=== PATIENT | female | born 1990 | race Caucasian/White ===

== ENCOUNTER → 2019-04-30 | Outpatient (CLI) | payer MEDICAID ==
[2019-04-30 11:47] LABS: HCT 40.7 % (34.0-46.0); HGB 13.6 gm/dL (11.4-16.0); MCH 30.7 pg (25.0-35.0); MCHC 33.4 g/dL (31.0-37.0); MCV 91.8 fL (80.0-100.0); Mean Platelet Volume 7.1; Platelet Count 307 k/uL (150-450); RBC 4.43 m/uL (3.80-5.40); RDW 12.1 % (11.5-15.5); WBC 10.8 k/uL (3.8-10.6)
[2019-04-30 16:34] LABS: DHEA Sulfate 200.9 ug/dL (26.0-430.0)
[2019-04-30 16:35] LABS: Follicle Stimulating Hormone 6.4 mIU/mL
[2019-04-30 16:58] LABS: Progesterone <0.2 ng/mL
[2019-04-30 17:13] LABS: T4, Free (Free Thyroxine) 1.3 ng/dL (0.80-1.80)
[2019-04-30 17:42] LABS: African American GFR (CKD) 117.1 (60.0-200.0); Albumin 4.5 g/dL (3.80-4.90); Albumin/Globulin Ratio 2.25 (1.60-3.17); Anion Gap 11.1 mmol/L (4.00-12.00); BUN/Creat Ratio 16.25 Ratio (12.00-20.00); Calcium 9.1 mg/dL (8.7-10.3); Carbon Dioxide 25.9 mmol/L (21.6-31.8); Potassium 4.3 mmol/L (3.5-5.5); Total Bilirubin 0.3 mg/dL (0.2-1.2); Total Protein 6.5 g/dL (6.2-8.2)
[2019-04-30 19:09] LABS: Hemoglobin A1C 5.3 % (4.0-6.0)
== END | disposition home or self-care (01) ==
LOC: LABWHC1 10:48
PROVIDERS: ATTEND Obstetrics & Gynecology Obstetrics
DX: N92.6 Irregular menstruation, unspecified (principal)
CPT/HCPCS: 36415; 80053; 82627; 83001; 83002; 83036; 84144; 84146; 84403; 84439; 84443; 85027

== ENCOUNTER → 2020-10-04 | Outpatient (CLI) | payer MEDICAID ==
[2020-10-04 14:46] LABS: HCT 35.4 % (37.2-46.3); HGB 11.3 g/dL (12.0-15.0); MCH 29.9 pg (27.0-32.0); MCHC 31.9 g/dL (32.0-37.0); MCV 93.7 fL (80.0-97.0); Mean Platelet Volume 11.4 fL (9.5-12.2); Platelet Count 245 X 10*3/uL (140-440); RBC 3.78 X 10*6/uL (4.10-5.20); RDW 13.4 % (11.5-14.5); WBC 12.04 X 10*3/uL (4.50-10.00)
== END | disposition home or self-care (01) ==
LOC: LABWHC1 07:47
PROVIDERS: ATTEND Obstetrics & Gynecology Obstetrics
DX: Z36.9 Encounter for antenatal screening, unspecified (principal); Z3A.00 Weeks of gestation of pregnancy not specified
CPT/HCPCS: 36415; 82950; 85027

== ENCOUNTER 2020-12-20 22:31 | Outpatient (CLI) | payer MEDICAID ==
[2020-12-21 00:15] VITALS: BP 137/86; PULSE 129; RESP 18; TEMP 97.3
--- NOTE | 2021-01-13 16:29 | P.MSEPDOC ---
Presenting Problems - Arrival Data Date of Arrival on Unit: 12/21/20 Time of Arrival on Unit: 22:31 Mode of Transport: Ambulatory - Complaint OB-Reason for Admission/Chief Complaint: Possible Onset of Labor, Decreased Movement Comment: [facility] decrease movement and contractions throughout that day rating pain 2/10, patient states she hasnt felt baby move since 1600 or 1700 today. Medical History - Information : 1 Para: 0 Term: 0 : 0 Abortions: Spontaneous or Elective: 0 Number of Living Children: 0 - Gestational Age Gestational Age by KITA (wks/days): 38 Weeks and 5 Days Review of Systems - Review of Systems Constitutional: No problems Breast: No problems ENT: No problems Cardiovascular: No problems Respiratory: No problems Gastrointestinal: No problems Genitourinary: No problems Musculoskeletal: No problems Neurological: No problems Skin: No problems Vital Signs - Temperature Temperature: 97.3 F Temperature Source: Temporal Artery Scan - Pulse Pulse Oximetery Pulse Rate: 129 Pulse Assessment Method: Pulse Oximetry - Respirations Respiratory Rate: 18 Oxygen Delivery Method: Room Air O2 Sat by Pulse Oximetry: 99 - Blood Pressure Right Arm Blood Pressure: 137/86 Blood Pressure Mean: 103 Blood Pressure Source: Automatic Cuff Medical Screen Scoring - Assessment - Baby A Baseline FHR: 135 Physician Notification - Physician Notified Physician Notified Date: 12/21/20 Physician Notified Time: 22:56 Physician: Jillian Pillai New Order Received: Yes (check cervix and if no change in 1 hour Discharge home) - Notification Comment Comment: cervix 1, thick and high, no change, Discharge patient home Disposition - Disposition OB Disposition: Discharge to home Discharge Date: 12/21/20 Discharge Time: 00:05 I agree with the RN Medical Screening Exam: Yes Case reviewed; plan agreed upon as documented in EMR&OBIX.: Yes Diagnosis: DECREASED MOVEMENTS, THIRD TRIMESTER, FETUS 1
== END 2020-12-21 00:05 | disposition home or self-care (01) ==
LOC: FBPOP 22:31
PROVIDERS: ATTEND Obstetrics & Gynecology Obstetrics
DX: O36.8130 Decreased fetal movements, third trimester, not applicable or unspecified (principal); Z3A.38 38 weeks gestation of pregnancy
CPT/HCPCS: 59025; 99213

== ENCOUNTER 2020-12-29 15:52 | Inpatient (IN) | payer MEDICAID ==
[2020-12-29] MEDS ORDERED: DINOPROSTONE 10 MG INSERT.ER VAGINAL ONE (16:30)
[2020-12-29] MEDS ORDERED: BUTORPHANOL 1 MG/ML 1 ML VIAL IV PRN (16:45)
--- NOTE | 2020-12-29 16:56 | P.HPOB ---
History of Present Illness H&P Date: 12/29/20 Chief Complaint: IUP @ 39 6/7 weeks This is a 30-year-old 1 para 0 at 39-6/7 weeks that presents to labor and delivery for induction of labor. Patient has been receiving routine care which has been essentially uncomplicated. Patient notes good movement denies vaginal bleeding or loss of fluid. She did have COVID 19 in march 2020. US done Sunday in the office, 9 lbs-0 oz. Normal judit. vertex presentation On blood work the patient has a blood type of A pos, rubella immune, RPR NR, hepatitis B surface antigen negative, HIV negative she did pass her one- hour Glucola with a level of 100, group beta strep cultures were negative. Review of Systems Constitutional: Denies fatigue, Denies fever Ears, nose, mouth and throat: Denies headache Cardiovascular: Reports leg edema Respiratory: Denies dyspnea Gastrointestinal: Denies constipation, Denies diarrhea, Denies nausea, Denies vomiting Genitourinary: Reports Past Medical History History of Any Multi-Drug Resistant Organisms: None Reported Smoking Status: Never smoker Medications and Allergies Home Medications Medication Instructions Recorded Confirmed Type Evening [place] Oil 1 tab VAGINAL DAILY 12/20/20 12/29/20 History Pnv,Calcium 72/Iron/Folic Acid 1 tab PO DAILY 12/20/20 12/29/20 History [ Plus Tablet] Allergies Allergy/AdvReac Type Severity Reaction Status Date / Time No Known Allergies Allergy Verified 12/29/20 16:09 Exam Osteopathic Statement: *. No significant issues noted on an osteopathic structural exam other than those noted in the History and Physical/Consult. Intake and Output 12/29/20 12/29/20 12/29/20 06:59 14:59 22:59 Other: Weight 141.067 kg Targeted physical exam is performed and the state in general this a well- nourished well-developed female in no acute distress, breathing is noted to be nonlabored, heart has regular rate and rhythm, abdomen is gravid and appropriate for gestational age, on cervical exam she is 1/50/-3 station, heart tones are noted to be category 1 and she is harpreet irregularly. Assessment and Plan (1) Term Current Visit: Yes Status: Acute Code(s): Z34.90 - ENCNTR FOR SUPRVSN OF NORMAL , UNSP, UNSP TRIMESTER SNOMED Code(s): 27081547 Plan: 30-year-old 1 para 0 at 39-6/7 weeks presents for induction of labor with Cervidil. Suspected LGA with ultrasound done this week in the office revealing a 9 pound . Options for analgesia during labor discussed putting Stadol and epidural. Will plan Cervidil to be removed around 5 AM, Pitocin to start soon afterwards. Patient states understanding of the plan of care all questions are answered.
[2020-12-29 17:10] LABS: Basophils % (A) 0 %; Eosinophils # (A) 0.2 k/uL (0-0.7); Eosinophils % (A) 1 %; HCT 37.2 % (34.0-46.0); Lymphocytes # (A) 1.8 k/uL (1.0-4.8); Lymphocytes % (A) 14 %; MCH 30.5 pg (25.0-35.0); MCV 87.1 fL (80.0-100.0); Mean Platelet Volume 8.7; Monocytes # (A) 0.4 k/uL (0-1.0); Monocytes % (A) 3 %; Neutrophils # (A) 10.3 k/uL (1.3-7.7); Neutrophils % (A) 81 %; Platelet Count 242 k/uL (150-450); RBC 4.27 m/uL (3.80-5.40); RDW 13.8 % (11.5-15.5); WBC 12.7 k/uL (3.8-10.6)
[2020-12-30] MEDS ORDERED: CARBOPROST TROMETHAMINE 250 MCG/ML 1 ML AMP IM PRN (05:56)
[2020-12-30] MEDS ORDERED: METHYLERGONOVINE 0.2 MG/ML 1 ML AMP IM PRN (05:56)
[2020-12-30] MEDS ORDERED: LIDOCAINE 0.5% (PF) 5 MG/ML (50 ML SDV) SQ PRN (05:56)
[2020-12-30] MEDS ORDERED: OXYTOCIN 10 UNIT/ML 1 ML VIAL IM PRN (05:56)
[2020-12-30] MEDS ORDERED: TERBUTALINE 1 MG/ML VIAL SQ PRN (05:56)
[2020-12-30] MEDS ORDERED: LACTATED RINGERS 1,000 ML IV SCH (06:00)
[2020-12-30] MEDS ORDERED: OXYTOCIN 30 UNITS/500 ML NS 30 UNIT in SALINE 1 500ML.BAG IV SCH ×2 (06:00→19:45)
[2020-12-30] MEDS: LACTATED RINGERS 1,000 ML IV SCH ×3 (06:01→15:32)
[2020-12-30] MEDS ORDERED: SODIUM CHLORIDE 0.9% 100 ML BAG ONE (15:13)
[2020-12-30] MEDS ORDERED: fentaNYL (PF) 50 MCG/ML 5 ML AMP ONE (15:13)
[2020-12-30] MEDS ORDERED: ROPIVACAINE 5MG/ML 20ML VIAL ONE (15:13)
[2020-12-30] MEDS ORDERED: CITRIC ACID-SODIUM CITRATE 15 ML CUP PO ONE (17:12)
[2020-12-30] MEDS ORDERED: ceFAZolin 3 GM in SODIUM CHLORIDE 0.9% 100 ML IVPB ONE (17:12)
[2020-12-30] MEDS ORDERED: NALBUPHINE 10 MG/ML (1 ML AMP) ONE (18:45)
[2020-12-30] MEDS ORDERED: LIDOCAINE 2% SYG (PF) 100 MG/5 ML ONE (18:45)
[2020-12-30] MEDS ORDERED: MORPHINE SULFATE (PF) 0.3 MG/0.3 ML SYR ONE (18:45)
[2020-12-30] MEDS ORDERED: ONDANSETRON 4 MG/2 ML VIAL ONE (18:45)
[2020-12-30] MEDS ORDERED: fentaNYL (PF) 50 MCG/ML 2 ML AMP ONE (18:45)
[2020-12-30] MEDS ORDERED: OXYTOCIN 10 UNIT/ML 1 ML VIAL ONE (18:45)
[2020-12-30] MEDS ORDERED: METOCLOPRAMIDE 5 MG/ML 2 ML VIAL IVP PRN (19:33)
[2020-12-30] MEDS ORDERED: ONDANSETRON 4 MG/2 ML VIAL IVP PRN (19:33)
[2020-12-30] MEDS ORDERED: SIMETHICONE 80 MG CHEWABLE PO PRN (19:33)
[2020-12-30] MEDS ORDERED: diphenhydrAMINE 50 MG CAP PO PRN (19:33)
[2020-12-30] MEDS ORDERED: OXYTOCIN 10 UNIT/ML 1 ML VIAL IM ONE (19:33)
[2020-12-30] MEDS ORDERED: ZOLPIDEM 5 MG TAB PO PRN (19:33)
[2020-12-30] MEDS ORDERED: NALOXONE 0.4 MG/ML 1 ML VIAL IV PRN (19:33)
[2020-12-30] MEDS ORDERED: diphenhydrAMINE 50 MG/ML 1 ML VIAL IVP PRN ×2 (19:33)
[2020-12-30] MEDS ORDERED: diphenhydrAMINE 25 MG CAP PO PRN (19:33)
--- NOTE | 2020-12-30 19:33 | P.OP ---
Date of Procedure: 12/30/20 Preoperative Diagnosis: IUP at 40-0/7 weeks, arrest of descent/dilation, suspected LGA Postoperative Diagnosis: Same Procedure(s) Performed: Primary low transverse section Anesthesia: epidural Surgeon: Jillian Pillai Director Of Women'S Services #1: Osvaldo Morrow Estimated Blood Loss (ml): 398 IV fluids (ml): 800 Urine output (ml): 500 Pathology: none sent Condition: stable Disposition: observation Indications for Procedure: This 30-year-old 1 para 0 at 40-0/7 weeks presented to labor and delivery last night for planned cervical ripening with Cervidil. Patient had known suspected LGA baby. Ultrasound completed in the office this week revealed a 9 lbs. 0 oz. . Patient was admitted and made no private branch exchange installer the night with Cervidil. Patient did undergo amniotomy after Pitocin augmentation of labor. Clear fluid was obtained. Patient made minimal change throughout the day and at approximately 1730 patient was noted to be 3 cm with a 50% effaced cervix and the infant at a high station. Patient was counseled on the findings of this exam and discussed primary secondary to arrest arrest of descent and dilation. Patient wished to proceed with primary . Patient was taken back to the operating suite for section Operative Findings: Normal uterus tubes and ovaries were appreciated, infant was not within the pelvis, caput was appreciated. Viable male infant delivered at 1859, weight of 9 lbs. 0 oz. Description of Procedure: Patient was taken back to the operating suite where epidural anesthesia was fou nd be adequate. She was prepped and draped in normal sterile fashion in the dorsal supine position a Pfannenstiel skin incision was made with the scalpel and carried through the underlying layer of fascia. The fascia was then incised in the midline and extended laterally. The superior aspect the fascial incision was then grasped shanice clamps, elevated and underlying rectus muscle was dissected off sharply. Attention turned to the inferior aspect of the fascial incision which was grasped shanice clamps, elevated and underlying rectus muscles dissected off sharply. The rectus muscles were in the midline the peritoneum was identified and entered. The bladder blade was then inserted into the pelvis. The vesicouterine peritoneum was identified and a bladder flap was created using sharp and blunt dissection. The bladder blade was then reinserted into the pelvis. Hysterotomy incision was made with the scalpel the was encountered in a vertex presentation and delivered in the usual fashion. The umbilical cord was doubly clamped and cut and infant was handed off to awaiting RN. The placenta was delivered manually intact with a three-vessel cord being noted. The uterus was delivered from the abdomen. The uterus was cleared of all clots and debris. The hysterotomy incision was closed with 0 Vicryl in a running locked fashion. A second indicating suture was performed. Bleeding was noted toward the midportion of the hysterotomy incision therefore a [id number] suture was used to obtain hemostasis. The pelvis was then copiously irrigated. The hysterotomy incision was inspected found to be hemostatic. The uterus was returned to the abdomen. The gutters were cleared of all clots and debris. The rectus muscles was inspected and found to be hemostatic. The fascia was closed with 0 Vicryl in a running fashion from one lateral edge the midline and the other lateral edge the midline. The subcutaneous tissue was irrigated found to be hemostatic and closed with 3-0 Vicryl in a running fashion. The skin was then closed with 4-0 Vicryl in a subcuticular fashion. Steri-Strips and sterile dressings were applied. All counts were noted to be correct 2 at the end of the procedure. Patient did tolerate procedure well and was taken back to her labor and delivery suite.
[2020-12-31] MEDS: SENNOSIDES-DOCUSATE SODIUM 1 EACH TAB PO SCH ×3 (00:05→19:44)
[2020-12-31] MEDS: ACETAMINOPHEN IV (For NPO) 1,000 MG in EMPTY BAG 1 BAG IVPB SCH ×2 (00:05→01:05)
[2020-12-31] MEDS: ACETAMINOPHEN TAB 500 MG TAB PO SCH ×5 (00:06→23:38)
[2020-12-31] MEDS: LACTATED RINGERS 1,000 ML IV SCH ×2 (01:06→04:53)
[2020-12-31] MEDS: IBUPROFEN IV 800 MG in SODIUM CHLORIDE 0.9% 250 ML IV SCH ×3 (03:52→09:50)
[2020-12-31] MEDS: IBUPROFEN 600 MG TAB PO SCH ×3 (04:53→19:44)
--- NOTE | 2020-12-31 06:20 | P.PN ---
Progress Note - Text 12/31/20 601am 80-year-old female status post . She had an epidural and received Duramorph after the procedure, she was seen and evaluated this morning, patient has a VAS of 0 at rest. No complains of nausea vomiting. Patient does have complains of pruritus should subside by the end of the day
[2020-12-31 07:14] LABS: Basophils % (A) 0 %; Eosinophils # (A) 0.1 k/uL (0-0.7); Eosinophils % (A) 1 %; HCT 32.8 % (34.0-46.0); HGB 11.4 gm/dL (11.4-16.0); Lymphocytes # (A) 1.8 k/uL (1.0-4.8); Lymphocytes % (A) 16 %; MCH 30.9 pg (25.0-35.0); MCHC 34.7 g/dL (31.0-37.0); MCV 88.9 fL (80.0-100.0); Mean Platelet Volume 8.6; Monocytes # (A) 0.4 k/uL (0-1.0); Monocytes % (A) 4 %; Neutrophils # (A) 8.7 k/uL (1.3-7.7); Neutrophils % (A) 79 %; Platelet Count 193 k/uL (150-450); RBC 3.68 m/uL (3.80-5.40)
--- NOTE | 2020-12-31 10:20 | P.PNOBGPC ---
Subjective - Subjective Principal diagnosis: POD 1 LTCS Interval history: Patient did well overnight. She is involuting and voiding without difficulty. She is tolerating a regular diet without nausea or vomiting. She states her lochia is minimal. She is attempting breast-feeding with some difficulty. She notes good pain control. Patient reports: Reports appetite normal, Reports voiding normally, Reports pain well controlled, Reports ambulating normally [place]: doing well Objective - Vital Signs Latest vital signs: Vital Signs Temp Pulse Resp BP Pulse Ox 12/31/20 08:00 98.4 F 85 16 109/71 97 12/31/20 03:40 97.8 F 81 16 124/79 98 12/30/20 23:42 97.9 F 103 H 16 134/77 95 12/30/20 21:33 98 F 89 16 122/59 99 12/30/20 21:03 98.4 F 90 16 133/66 99 12/30/20 20:33 81 16 136/68 98 12/30/20 20:18 90 16 127/69 98 12/30/20 20:03 78 16 120/69 98 12/30/20 19:48 77 16 123/63 96 12/30/20 19:33 97.8 F 86 16 132/69 98 Intake and Output 12/30/20 12/31/20 12/31/20 22:59 06:59 14:59 Intake Total 1600 100 Output Total 350 3600 Balance 1250 -3500 Intake: IV 1500 Oral 100 100 Output: Urine 350 3600 Uretheral ([place]) 1200 Other: Voiding Method Indwelling Catheter Indwelling Catheter # Voids 0 - Exam Extremities: Present: normal, edema Abdomen: Present: normal appearance Incision: Present: normal, dry, intact Uterus: Present: normal, firm - Labs Labs: Abnormal Lab Results - Last 24 Hours (Table) 12/31/20 Range/Units 06:52 WBC 11.0 H (3.8-10.6) k/uL RBC 3.68 L (3.80-5.40) m/uL Hct 32.8 L (34.0-46.0) % Neutrophils # 8.7 H (1.3-7.7) k/uL Assessment and Plan (1) Term Current Visit: Yes Status: Acute Code(s): Z34.90 - ENCNTR FOR SUPRVSN OF NORMAL , UNSP, UNSP TRIMESTER SNOMED Code(s): 29167517 (2) S/P section Current Visit: Yes Status: Acute Code(s): Z98.891 - HISTORY OF UTERINE SCAR FROM PREVIOUS SURGERY SNOMED Code(s): 888589104 (3) Arrest of descent, delivered, current hospitalization Current Visit: Yes Status: Acute Code(s): O62.1 - SECONDARY UTERINE INERTIA SNOMED Code(s): 64530990 (4) Arrest of dilation, delivered, current hospitalization Current Visit: Yes Status: Acute Code(s): O62.1 - SECONDARY UTERINE INERTIA SNOMED Code(s): 54627022 (5) LGA (large for gestational age) fetus Current Visit: Yes Status: Acute Code(s): TGC4052 - SNOMED Code(s): 563526793 Plan: 30-year-old G1 now P1 status post primary for arrest of descent and dilation and suspected LGA. Patient is doing well this morning. We will continue routine postoperative care and anticipate discharge home tomorrow.
[2020-12-31] MEDS: PRENATAL VIT-IRON-FOLIC ACID 1 EACH CAP PO SCH (12:25)
[2021-01-01] MEDS: IBUPROFEN 600 MG TAB PO SCH ×4 (02:01→16:10)
[2021-01-01] MEDS: ACETAMINOPHEN TAB 500 MG TAB PO SCH ×2 (06:18→12:24)
[2021-01-01] MEDS: SENNOSIDES-DOCUSATE SODIUM 1 EACH TAB PO SCH (08:45)
[2021-01-01] MEDS: PRENATAL VIT-IRON-FOLIC ACID 1 EACH CAP PO SCH (08:46)
--- NOTE | 2021-01-01 09:46 | P.DS ---
Providers Date of admission: 12/29/20 15:52 Expected date of discharge: 01/01/21 Attending physician: Jillian Pillai Primary care physician: Stated None - Discharge Diagnosis(es) (1) Arrest of descent, delivered, current hospitalization Current Visit: Yes Status: Acute (2) LGA (large for gestational age) fetus Current Visit: Yes Status: Acute (3) S/P section Current Visit: Yes Status: Acute (4) Term Current Visit: Yes Status: Acute Hospital Course: This is a 30-year-old 1 now para 1 woman who is admitted at 40-0/7 weeks gestation for induction of labor secondary to suspected LGA baby at term. She underwent Cervidil cervical ripening overnight followed by Pitocin induction of labor with amniotomy. The patient made minimal change throughout her 24 hours of induction of labor and decision was ultimately made to proceed to primary low transverse section. Findings at the time of were significant for male infant weighing 9 lbs. 0 oz. Please see the operative report for details. The patient's postoperative course was unremarkable. By postoperative day #1 she was ambulating and voiding without difficulty and tolerating a general diet. Her pain was well-controlled with oral pain medications. By postoperative day #2 she continued to do well. Her pain was well-controlled on Tylenol and ibuprofen. She is using stool softeners. She is breast-feeding successfully. Throughout her postop course her blood pressures were within normal limits however she did have a singular elevated blood pressure of 155/80 on the morning of postoperative day #2. She denies symptoms of headaches or visual changes. On examination the lungs are clear to auscultation bilaterally and the heart is a regular rate and rhythm. The incision appears to be well healing and her abdomen is soft and nontender. She has 1+ bilateral lower extremity edema. Decision was made to discharge her home on postoperative day #2 pending further on normal blood pressure readings and discharge of the by the sale professional digital marketing. Routine discharge instructions and plans for follow-up were discussed in detail with the patient and her . Procedures: Primary low transverse section Patient Condition at Discharge: Good Plan - Discharge Summary New Discharge Prescriptions: New Ibuprofen [Motrin] 600 mg PO Q6H tab Oxk-Bzqy-Ousiu Acid [-U Capsule (formulary)] 1 each PO DAILY cap Acetaminophen Tab [Tylenol] 1,000 mg PO Q6H tab Sennosides-Docusate Sodium [Senokot-S] 2 each PO BID@0800,1999 tab Discontinued Pnv,Calcium 72/Iron/Folic Acid [ Plus Tablet] 1 tab PO DAILY No Action Evening [place] Oil 1 tab VAGINAL DAILY Discharge Medication List Evening [place] Oil 1 tab VAGINAL DAILY 12/20/20 [History] Acetaminophen Tab [Tylenol] 1,000 mg PO Q6H tab 01/01/21 [Rx] Ibuprofen [Motrin] 600 mg PO Q6H tab 01/01/21 [Rx] Veg-Irle-Tsbrf Acid [-U Capsule (formulary)] 1 each PO DAILY cap 01/01/21 [Rx] Sennosides-Docusate Sodium [Senokot-S] 2 each PO BID@799,1999 tab 01/01/21 [Rx] Follow up Appointment(s)/Referral(s): Jillian Pillai DO [Doctor of Osteopathic Medicine] - 10 Days Activity/Diet/Wound Care/Special Instructions: Follow-up in 2 weeks after surgery in the office. Call the office with any concerning signs or symptoms including headache, visual changes, fever greater than 100.5, severe abdominal pain, heavy vaginal bleeding, signs of wound infection, increased swelling or redness of the lower extremities, signs of depression. No driving for 2 weeks after surgery. No heavy lifting or vigorous activity until reevaluated in the office. No intercourse for 6 weeks after delivery.
[2021-01-01 10:09] VITALS: RESP 14
[2021-01-01 16:19] VITALS: BP 123/71; PULSE 91; TEMP 97.8
== END 2021-01-01 17:27 | disposition home or self-care (01) | DRG 788 ==
LOC: 4FBP 15:52
PROVIDERS: ADMIT Obstetrics & Gynecology Obstetrics; ATTEND Obstetrics & Gynecology Obstetrics
PROC: 10D00Z1 Extraction of Products of Conception, Low, Open Approach (ICD-10-PCS; principal; 2020-12-30 18:45)
DX: O12.04 Gestational edema, complicating childbirth (principal); O36.63X0 Maternal care for excessive fetal growth, third trimester, not applicable or unspecified; O62.0 Primary inadequate contractions; O62.1 Secondary uterine inertia; L29.9 Pruritus, unspecified; Z37.0 Single live birth; Z3A.39 39 weeks gestation of pregnancy; Z86.16 Personal history of COVID-19
CPT/HCPCS: 85025; 86850; 86900; 86901